=== PATIENT | female | born 1935 | race Caucasian/White ===

== ENCOUNTER 2016-07-04 08:10 | Outpatient (CLI) | payer MEDICARE, OTHER ==
[~2016-07-04] VITALS: Ht 160 cm; Wt 57.6 kg
[2016-07-04] VITALS (8 sets, daily range): BP systolic 150–183; BP diastolic 30–85
[2016-07-04] MEDS ORDERED: ATOR40TA59 PO (08:41)
[2016-07-04] MEDS ORDERED: DIGO125T PO (08:41)
[2016-07-04] MEDS ORDERED: WARF2TAB7 PO (08:41)
[2016-07-04] MEDS ORDERED: SERT25TA PO (08:41)
[2016-07-04] MEDS ORDERED: ALPR0.25 PO (08:41)
[2016-07-04] MEDS ORDERED: HYDR-2666 PO (08:41)
[2016-07-04] MEDS ORDERED: METO25TA4 PO (08:41)
[2016-07-04 08:56] LABS: BASO % 1 % (0-3); EOS % 1 % (0-3); HEMATOCRIT 35.3 % (36.0-47.0); HEMOGLOBIN 11.8 g/dL (12.0-15.5); LYMPH # 1.7 x10^3/uL (1.0-4.8); LYMPH % 20 % (24-48); MEAN CORPUSCULAR HEMOGLOBIN 27 pg (25-35); MEAN CORPUSCULAR HGB CONC 33 g/dL (31-37); MEAN CORPUSCULAR VOLUME 80 fL (79-100); MONO % 7 % (0-9); NEUT % 72 % (31-73); PLATELET COUNT 271 x10^3/uL (140-400); RED CELL DISTRIBUTION WIDTH 15.1 % (11.5-14.5); WHITE BLOOD COUNT 8.7 x10^3/uL (4.0-11.0)
[2016-07-04 09:08] LABS: INR 1.2 (0.8-1.1); PROTHROMBIN TIME PATIENT 14.7 SEC (11.7-14.0)
[2016-07-04] MEDS ORDERED: LIDOCAINE 1% / SOD BICARB 8.4% 20 ML VIAL. IJ ONE ×2 (10:12→11:15)
[2016-07-04] MEDS ORDERED: CONTRAST GIVEN MC PRN (11:00)
[2016-07-04] MEDS ORDERED: MIDAZOLAM HCL/PF 2 MG/2 ML VIAL. ONE (11:03)
[2016-07-04] MEDS ORDERED: fentaNYL PF VIAL 100 MCG/2 ML VIAL ONE (11:04)
[2016-07-04] MEDS ORDERED: MIDAZOLAM HCL/PF 2 MG/2 ML VIAL. IV ONE (11:15)
[2016-07-04] MEDS ORDERED: fentaNYL PF VIAL 100 MCG/2 ML VIAL IV ONE (11:15)
[2016-07-04] MEDS ORDERED: IOHEXOL 300 MG/ML 100ML VIAL. IART ONE (11:45)
--- NOTE | 2016-07-04 11:52 | PDOC1 ---
History and Physical Date of Procedure Date of Admission 07/04/[address] guided aspiration of RLQ cystic mass Indication Indication Large, tender RLQ intraperitoneal cystic mass, of ? etiology. Past Medical History Past Medical History See Nursing Pre Procedure PMH Past Surgical History Past Surgical History See Nursing Pre Procedure PSH Current Medications Current Medications Current Medications Lidocaine/Sodium Bicarbonate (Buffered Lidocaine 1%) 20 ml STK-MED ONCE IJ ; Start 07/04/16 at 10:12; Stop 07/04/16 at 10:13; Status DC Iohexol (Omnipaque 300 Mg/ml) 108 ml 1X ONCE IART ; Start 07/04/16 at 11:45; Stop 07/04/16 at 11:46; Status DC Heparin Sodium/ Sodium Chloride 120 unit 1X ONCE IV ; Start 07/04/16 at 11:00; Stop 07/04/16 at 11:01; Status DC Info (Do NOT chart on this entry -- for MONITORING) 1 each PRN DAILY PRN MC SEE COMMENTS; Start 07/04/16 at 11:00; Stop 07/06/16 at 10:59 Midazolam HCl (Versed) 2 mg STK-MED ONCE .ROUTE ; Start 07/04/16 at 11:03; Stop 07/04/16 at 11:04; Status DC Fentanyl Citrate (Fentanyl 2ml Vial) 100 mcg STK-MED ONCE .ROUTE ; Start at 11:04; Stop 07/04/16 at 11:05; Status DC Lidocaine/Sodium Bicarbonate (Buffered Lidocaine 1%) 20 ml 1X ONCE IJ Last administered on 07/04/16t 11:34; Start 07/04/16 at 11:15; Stop 07/04/16 at 11:16 ; Status DC Midazolam HCl (Versed) 2 mg 1X ONCE IV ; Start 07/04/16 at 11:15; Stop at 11:16; Status DC Fentanyl Citrate (Fentanyl 2ml Vial) 100 mcg 1X ONCE IV ; Start 07/04/16 at 11: 15; Stop 07/04/16 at 11:16; Status DC Active Scripts Active Reported Atorvastatin Calcium 40 Mg Tablet 1 Tab PO DAILY Zoloft (Sertraline Hcl) 25 Mg Tablet 1 Tab PO DAILY Hydrocodone-Apap 5-325 (Hydrocodone Bit/Acetaminophen) 1 Each Tablet 1 Tab PO PRN Q6HRS PRN Warfarin Sodium 2 Mg Tablet 2.5 Mg PO DAILY Xanax (Alprazolam) 0.25 Mg Tablet 1 Tab PO HS Metoprolol Tartrate 25 Mg Tablet 1 Tab PO BID Digoxin 125 Mcg Tablet 1 Tab PO DAILY Allergies Allergies: Coded Allergies: Penicillins (Verified Allergy, Intermediate, 07/04/16) Physical Exam Vital Signs Vital Signs Date Time Temp Pulse Resp B/P (MAP) Pulse Ox O2 Delivery O2 Flow Rate FiO2 07/04/16 11:30 63 13 177/30 (79) 97 Nasal Cannula 2.0 07/04/16 09:17 97.9 97.9 Lungs: Clear to auscultation Heart: Other (Irregularly lrregular R&R) Psych/Mental Status: Mental status NL Other RLQ tender to direct palpation. Diagnostic Data/Imaging Images Outside CT abd/pelvis from [facility], dated 06/23/16 reviewed. Assessment Assessment Tender, large, RLQ, intraperitoneal cystic mass---? etiology Problems: Plan Plan CT guided aspiration of RLQ cystic mass for symptomatic relief and for fluid analysis. KAHLIL SIDHU MD July 04, 2016 11:52
--- NOTE | 2016-07-04 12:00 | PDOC ---
Exam Capacity Planning Manager Capacity Planning Manager Ricky Other Sales Support Worker Other Sales Support Worker B Cates Pre-Procedure Diagnosis Pre-Procedure Diagnosis Large, tender RLQ intraperitoneal cystic mass of ? etiology. Post-Procedure Diagnosis Post-Procedure Diagnosis Same Procedure Performed Procedure Performed CT guided aspiration of RLQ intraperitoneal cystic mass for symptomatic relief and fluid analysis Type of Anesthesia Type of Anesthesia Local only Estimated Blood Loss EBL: Trace Specimens Specimans 230 cc straw-clear cyst fluid removed---samples to lab for C&S and Cytology. Condition of Patient Condition of Patient Stable. No apparent complication. Disposition Disposition Home from OBS, if no problems. F/u with Dr Akhtar. Full report to follow. KAHLIL SIDHU MD July 04, 2016 12:00
--- NOTE | 2016-07-04 16:18 | RAD ---
CT-guided aspiration of right lower quadrant intraperitoneal cystic mass Indication: Large, tender, right lower quadrant intraperitoneal cystic mass, of uncertain etiology. Image guided aspiration has been requested by general surgery, for symptomatic relief and for fluid analysis. Anesthesia: Local only Procedure: Informed consent was obtained from the patient. She was placed supine on the CT scanner. Preliminary noncontrast CT images confirmed the presence of a large, well-defined, right lower quadrant intraperitoneal cystic mass, measuring approximate 9 cm and maximum diameter. A right anterior skin site suitable for image guided aspiration of this lesion was selected and marked. That area was prepped and draped in usual sterile fashion. No moderate sedation was utilized. Using aseptic technique, local anesthesia, and CT guidance, a small micropuncture sheath was successfully introduced into the cystic mass. The micropuncture sheath was exchanged over a guidewire for a 6 [place] drainage catheter. 230 cc of straw-clear cyst fluid was easily aspirated, samples which were submitted to the clinical laboratory for culture and sensitivity and for cytology. Completion CT images revealed essentially complete decompression of the cystic mass. The drainage catheter was then removed and a sterile dressing was applied. Patient tolerated the procedure well without apparent complication. Impression: Successful, uneventful CT-guided aspiration of right lower quadrant intraperitoneal cystic mass, as described. PQRS Compliance Statement: One or more of the following individualized dose reduction techniques was utilized for this procedure: 1. Automated exposure control. 2. Adjustment of MA and/or KV according to patient size. 3. Iterative reconstruction technique.
== END 2016-07-04 13:00 | disposition home or self-care (01) ==
LOC: INTRAD 08:10
PROVIDERS: ATTEND Surgery
DX: K66.8 Other specified disorders of peritoneum (principal); I48.91 Unspecified atrial fibrillation; Z90.49 Acquired absence of other specified parts of digestive tract; Z87.39 Personal history of other diseases of the musculoskeletal system and connective tissue
CPT/HCPCS: 10030; 36415; 82150; 85027; 85610; 87071; 87075; 87205; 88112; 88305; 88341; 88342; A4215; C1729; C1892; C1894; 10022; 77012; G0641

== ENCOUNTER → 2017-02-05 | Outpatient (CLI) | payer MEDICARE ==
[2016-07-04 12:15] VITALS: BP 176/84
[~2017-02-05] MED LIST: ALPR0.25 PO; ATOR40TA59 PO; DIGO125T PO; HYDR-2758 PO; METO25TA4 PO; SERT25TA PO; WARF2TAB7 PO
--- NOTE | 2017-02-05 14:37 | RAD ---
Indication: Right lower quadrant mass follow-up. Abdominal pain. Technique: Grayscale, color Doppler and spectral waveform ultrasound images of the abdomen obtained. Comparison: CT abdomen and pelvis from 06/23/2016. Findings: The visualized pancreas is within normal limits. The liver measures 13.4 cm in craniocaudal dimension and is normal in size and echotexture without focal lesion. Main portal vein is patent with hepatopedal flow. IVC is patent. CBD measures 8 mm which may be normal in postcholecystectomy patient. The right kidney measures 11.5 cm in length without evidence of hydronephrosis. Evaluation of right lower quadrant is limited due to overlying bowel gas. Left kidney measures 11.3 cm in length without evidence of hydronephrosis. Spleen measures 9 cm and is within normal in size. The proximal, mid and distal aortic diameter measures 1.7 cm, 1.6 cm and 1.4 cm respectively without evidence of aneurysmal dilation. Mild atherosclerotic disease of the abdominal aorta. Impression: 1. Evaluation of right lower quadrant is limited due to overlying bowel gas. Consider CT abdomen and pelvis with IV contrast. 2. Status post cholecystectomy.
== END | disposition home or self-care (01) ==
LOC: US 10:23
PROVIDERS: ATTEND Surgery
DX: R19.03 Right lower quadrant abdominal swelling, mass and lump (principal); Z90.49 Acquired absence of other specified parts of digestive tract
CPT/HCPCS: 76700

== ENCOUNTER → 2020-04-21 | Outpatient (CLI) | payer MEDICARE ==
[2016-07-04 12:15] VITALS: BP 176/84
[~2020-04-21] MED LIST changes: -DIGO125T PO; +DIGO125T3 PO; -HYDR-2758 PO; +HYDR-2761 PO; -WARF2TAB7 PO; +WARF2TAB96 PO
--- NOTE | 2020-04-21 15:16 | KCIC ---
Exam Date: 04/21/2020 11:39 AM XR KNEE _3 VIEWS_LT Indication: Reason: OA Lt knee, pain, pain injection today. / Spl. Instructions: / History: FINDINGS/ IMPRESSION: No acute fracture or dislocation. There is moderate lateral compartment joint space narrowing. Align ment is maintained. Moderate osteophytes are noted. There is a small joint effusion. Electronically signed by: Zach Loya MD (04/21/2020 3:14 PM) [id number]
== END ==
LOC: KCIC 11:36
PROVIDERS: ATTEND Family Medicine
DX: M17.12 Unilateral primary osteoarthritis, left knee (principal); M25.762 Osteophyte, left knee; M25.462 Effusion, left knee
CPT/HCPCS: 73562

== ENCOUNTER → 2021-01-03 | Outpatient (CLI) | payer MEDICARE ==
[2016-07-04 12:15] VITALS: BP 176/84
[~2021-01-03] MED LIST changes: +BIOT1CAP3 PO; +CRESTOR5 MG PO
--- NOTE | 2021-01-03 15:28 | EKG ---
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
[2021-01-03 15:46] LABS: BASO % 0 % (0-3); EOS % 1 % (0-3); HEMATOCRIT 37.5 % (36.0-47.0); HEMOGLOBIN 12.6 g/dL (12.0-15.5); LYMPH # 1.3 x10^3/uL (1.0-4.8); LYMPH % 21 % (24-48); MEAN CORPUSCULAR HEMOGLOBIN 30 pg (25-35); MEAN CORPUSCULAR HGB CONC 34 g/dL (31-37); MEAN CORPUSCULAR VOLUME 89 fL (79-100); MONO # 0.5 x10^3/uL (0.0-1.1); MONO % 8 % (0-9); NEUT # 4.6 x10^3/uL (1.8-7.7); NEUT % 71 % (31-73); PLATELET COUNT 222 x10^3/uL (140-400); RED BLOOD COUNT 4.23 x10^6/uL (3.50-5.40); RED CELL DISTRIBUTION WIDTH 15.3 % (11.5-14.5); WHITE BLOOD COUNT 6.4 x10^3/uL (4.0-11.0)
[2021-01-03 16:11] LABS: ALBUMIN 3.7 g/dL (3.4-5.0); ALBUMIN/GLOBULIN RATIO 1.3 (1.0-1.7); CALCIUM 8.7 mg/dL (8.5-10.1); CREATININE 0.7 mg/dL (0.6-1.0); GFR 79.2; POTASSIUM 3.9 mmol/L (3.5-5.1); TOTAL BILIRUBIN 0.4 mg/dL (0.2-1.0); TOTAL PROTEIN 6.6 g/dL (6.4-8.2)
== END ==
LOC: SURGPAT 13:25
PROVIDERS: ATTEND Neurological Surgery
DX: Z01.818 Encounter for other preprocedural examination (principal); M47.26 Other spondylosis with radiculopathy, lumbar region; M48.061 Spinal stenosis, lumbar region without neurogenic claudication; I48.91 Unspecified atrial fibrillation
CPT/HCPCS: 36415; 80053; 85025; 87641; 93005

== ENCOUNTER 2021-01-07 07:11 | Observation (INO) | payer MEDICARE ==
[2021-01-05 14:34] VITALS: BP 135/89
[~2021-01-07] VITALS: Ht 160 cm; Wt 63.6 kg
[~2021-01-07 07:11] MED LIST changes: +BUPIVACAINE-EPI 0.5% 30 ML VIAL KIT. ONE; +GELATIN SPONGE SIZE 100. ONE; +HYDROmorphone 2 MG/ML VIAL IVP PRN; +IV RINGERS,LACTATED 1000ML 1,000 ML IV SCH; +KETOROLAC 60 MG/2 ML VIAL. ONE; +LIDOCAINE 2% PF 5 ML VIAL. ONE; +PHENYLEPHRINE 10 MG/ML VIAL. ONE; +PROCHLORPERAZINE 10 MG/2 ML VIAL. IVP PRN; +PROPOFOL 10 MG/ML (20ML) VIAL. IV ONE; +PROPOFOL 50 ML IV ONE; +REMIFENTANIL 1 MG VIAL. IV ONE; +ROCURONIUM 50 MG/5 ML VIAL. ONE; +SUCCINYLCHOLINE 200 MG/10 ML VIAL. ONE; +THROMBIN TOPICAL 20,000 UNIT SPRAY.SYRN KIT TP ONE; +ceFAZolin SODIUM 1 GM in IV NORMAL SALINE 1000ML BAG 1,000 ML IRR ONE; +fentaNYL PF VIAL 100 MCG/2 ML VIAL IVP PRN; +fentaNYL PF VIAL 100 MCG/2 ML VIAL ONE
[2021-01-07] MEDS ORDERED: DEXAMETHASONE SOD PHOS 4 MG/ML VIAL ONE (07:22)
[2021-01-07] MEDS ORDERED: ONDANSETRON PF 4 MG/2 ML VIAL. ONE (07:22)
[2021-01-07] MEDS ORDERED: SEVOFLURANE > 120 MINUTES. IH ONE (07:53)
[2021-01-07 07:54] VITALS: BP 181/101
[2021-01-07] MEDS ORDERED: PROPOFOL 50 ML IV ONE (08:03)
[2021-01-07] MEDS ORDERED: INSULIN LISPRO 100 UNIT/ML 3ML VIAL for OP,RR ONLY. SQ PRN (08:15)
[2021-01-07 08:29] LABS: PROTHROMBIN TIME PATIENT 14.2 SEC (11.7-14.0)
[2021-01-07] MEDS ORDERED: THROMBIN TOPICAL 20,000 UNIT SPRAY.SYRN KIT TP ONE (09:41)
[2021-01-07] MEDS ORDERED: REMIFENTANIL 1 MG VIAL. IV ONE (09:51)
[2021-01-07] MEDS ORDERED: MAGNESIUM HYDROXIDE 2,400 MG/30 ML ORAL.SUSP. PO PRN (13:00)
[2021-01-07] MEDS ORDERED: diphenhydrAMINE HCL 25 MG CAPSULE PO PRN (13:00)
[2021-01-07] MEDS ORDERED: 0.9 % SODIUM CHLORIDE 10 ML DISP.SYRIN. IV PRN (13:00)
[2021-01-07] MEDS ORDERED: HYDROcodone/APAP 5/325MG 1 TAB TABLET PO PRN (13:00)
[2021-01-07] MEDS ORDERED: ONDANSETRON PF 4 MG/2 ML VIAL. IVP PRN (13:00)
[2021-01-07] MEDS ORDERED: ACETAMINOPHEN 325 MG TABLET. PO PRN (13:00)
[2021-01-07] MEDS ORDERED: fentaNYL PF VIAL 100 MCG/2 ML VIAL IVP PRN (13:00)
[2021-01-07] MEDS ORDERED: NALOXONE 0.4 MG/ML VIAL. IV PRN (13:00)
[2021-01-07] MEDS ORDERED: CALCIUM CARBONATE 500 MG TAB.CHEW PO PRN (13:00)
[2021-01-07] MEDS ORDERED: MAG HYDROX/ALUMINUM HYD/SIMETH 30 ML ORAL.SUSP PO PRN (13:00)
[2021-01-07] MEDS ORDERED: MORPHINE SULFATE 2 MG/ML INJ. ONE (13:11)
[2021-01-07] MEDS: MORPHINE SULFATE 2 MG/ML INJ. IVP PRN ×2 (13:20→13:36)
[2021-01-07] MEDS ORDERED: NEOMY/BACITR/POLYMYXIN OINT PACKET. TP PRN (13:43)
[2021-01-07] MEDS ORDERED: HYDR-2761 PO (13:46)
--- NOTE | 2021-01-07 13:55 | DISCH ---
DISCHARGE INSTRUCTIONS Condition on Discharge Condition on Discharge: Stable Activity After Discharge Activity Instructions for Disc: Activity as tolerated, Avoid exertion Other activity instructions: do not drive for a week Bathing Instructions: Shower-keep dressing dry, No Tub Bath until see Lifting Instructions after Dis: No heavy lifting, No pulling or pushing Driving Instructions after Dis: Do not drive today Weight Bearing Status after Di: As tolerated Diet after Discharge Additional Diet Restrictions: resume home diet Wound Incision Care Wound/Incision Care: Ice to area for comfort Other wound/incision instructi: may remove dressing in 48 hours if dry then may shower, no soaking Contacting the after DC Call your doctor for: Concerns you may have Follow-Up Follow up with: Dr. Griffin's nurse in 2 weeks [phone] PORFIRIO GRIFFIN MD Jan 07, 2021 13:55
[2021-01-07] MEDS: POTASSIUM CL 20MEQ D5-0.45NACL 1,000 ML IV SCH (14:03)
--- NOTE | 2021-01-07 15:17 | OP ---
DATE OF SURGERY: 01/07/2021 PREOPERATIVE DIAGNOSES: Lumbar spinal stenosis at L3-4 with lumbar herniated disk at L3-4 and hypertrophic facet and ligament. POSTOPERATIVE DIAGNOSES: Lumbar spinal stenosis at L3-4 with lumbar herniated disk at L3-4 and hypertrophic facet and ligament. OPERATION PERFORMED: Bilateral hemilaminotomies with removal of thickened ligamentum flavum, microdiskectomy, left L3-L4 with decompression of dura and nerve root. The operation was done with EMG monitoring, SSEP monitoring, fluoroscopy, microscopic dissection. SURGEON: Prosper Jones M.D. SEAM CLOSER: MATTHEW Key, assisted with the surgery. She assisted with the exposure, the microdecompression bilaterally, and diskectomy, as well as the closure. SPECIMEN: Disc and decompression. OPERATIVE INDICATIONS: The patient is a pleasant 85-year-old woman who developed intractable back and bilateral leg pain, which markedly inhibited her activities. On imaging studies, she had a number of problems, but she did have very severe lumbar stenosis at L3-4, which is due to a combination of disc bulging as well as hypertrophic facet and ligament. I spoke with her about the possibility of surgery, which she initially did not wish to proceed with and then later she called us and said she strongly wanted to go ahead. She understood the surgery. She understood the risks. She understood all concerns because of her age. She had consented and strongly wanted to go ahead with surgery. DESCRIPTION OF PROCEDURE: Following general endotracheal anesthesia, the patient was positioned prone on the Ethan table. Lumbar region prepped and draped in the standard fashion. WENDY hose and AV impulse boots were applied for DVT prophylaxis. The microscope was draped, fluoroscopy was draped and brought in the field. Monitoring was established. Ancef 2 grams was given less than one hour prior to initiation of surgery. Using fluoroscopic guidance, an incision was made from mid L3 to mid L4. I dissected down through skin and subcutaneous tissue, reflected the paraspinal muscles on the left side, placed a Munday microdisk retractor, brought in the microscope and the remainder of surgery done with the microscope using microscopic technique. I burred down a generous hemilaminotomy with a high-speed air drill, peeled away thickened ligamentum flavum and inferiorly, this was very thick, markedly compressing the dura, so I thinned the ligamentum flavum and then I was able to pull it back and peel it away. I then gently retracted the root medially. There was a large bulging disk and I had the nerve root held medially with a micro nerve root retractor, incised the annulus and I performed discectomy with pituitary rongeurs and removed very large disc fragments with the [place] dental across the midline and we also teased out rest of the disc fragments. At the completion of this, the area was very well decompressed. I then irrigated copiously. I then switched to the contralateral side by opening the ligamentum flavum on the right side and performed the identical operation on the right. At this level, the disc bulging was not significant and it was really easier to handle the hypertrophic ligament. At any rate on following this, I had an excellent decompression. I did use small amounts of bone wax throughout the operation for any bone bleeding. Bipolar cautery was used sparingly. I irrigated copiously. I removed the retractor, re-irrigated and obtained hemostasis in the muscle and then I closed the wound in layers with absorbable suture and the skin was closed with 4-0 subcuticular stitch. I felt the surgery went very well. GRECIA/SARAH/CHERELLE DR: Mirella TID: [id number] GUIDO
[2021-01-07] MEDS ORDERED: METOPROLOL TART IMMED RELEASE 25 MG TABLET. PO ONE (15:30)
--- NOTE | 2021-01-07 15:30 | NUR ---
BHAVIN Medrano notified of BP 178/94, HR 98. Telephone orders received
[2021-01-07] MEDS: HYDROcodone/APAP 5/325MG 1 TAB TABLET PO PRN (17:25)
[2021-01-07 18:48] VITALS: BP 113/56
[2021-01-07] MEDS ORDERED: ALPRAZolam 0.25 MG TABLET PO SCH (21:00)
[2021-01-07] MEDS ORDERED: ATORVASTATIN CALCIUM 40 MG TABLET. PO PRN (21:00)
[2021-01-07] MEDS: METOPROLOL TART IMMED RELEASE 25 MG TABLET. PO SCH (21:00)
[2021-01-07] MEDS: DOCUSATE SODIUM 100 MG CAPSULE. PO SCH (22:31)
[2021-01-07] MEDS: WARFARIN 2.5 MG TABLET. PO SCH (22:31)
[2021-01-07 22:46] VITALS: BP 165/91
[2021-01-08] MEDS: POTASSIUM CL 20MEQ D5-0.45NACL 1,000 ML IV SCH ×2 (02:20→15:40)
[2021-01-08 02:32] VITALS: BP 132/57
[2021-01-08 07:00] VITALS: BP 111/75
[2021-01-08] MEDS ORDERED: NON FORMULARY ITEM (Biotin 1 MG) PO SCH (09:00)
[2021-01-08] MEDS: SERTRALINE 25 MG TABLET. PO SCH (09:48)
[2021-01-08] MEDS: METOPROLOL TART IMMED RELEASE 25 MG TABLET. PO SCH ×2 (09:49→20:50)
[2021-01-08] MEDS: DOCUSATE SODIUM 100 MG CAPSULE. PO SCH ×2 (09:49→20:45)
[2021-01-08] MEDS: HYDROcodone/APAP 5/325MG 1 TAB TABLET PO PRN ×3 (09:55→20:45)
[2021-01-08 11:00] VITALS: BP 125/61
--- NOTE | 2021-01-08 11:05 | CONS ---
DATE OF CONSULTATION: 01/08/2021 LOCATION: She is in room 410. SUBJECTIVE: This 85-year-old female is well known to me from followup in the office. She had surgery for decompression of spinal stenosis on her lumbar spine yesterday by Dr. Ernandez. She felt like for several hours postop she was great and most of her leg pain was improved and then she is back to her usual and was up most of the night with pain. PAST MEDICAL HISTORY: Remarkable for chronic atrial fibrillation, on anticoagulant therapy. She has a history of hyperlipidemia, prior joint replacement, and anxiety. PAST SURGICAL HISTORY: Remarkable for cholecystectomy, ventral hernia repair, appendectomy, joint replacement of bilateral shoulders and hips. MEDICATIONS: Brought with the patient, listed on the computer, have been addressed. ALLERGIES: SHE IS ALLERGIC TO PENICILLIN. SOCIAL HISTORY: She is a , nonsmoker, nondrinker, does not abuse alcohol. Lives at home alone. FAMILY HISTORY: Noncontributory. REVIEW OF SYSTEMS: As mentioned above. PHYSICAL EXAMINATION: GENERAL: She is a well-developed, well-nourished white female who appears mildly to moderately uncomfortable. VITAL SIGNS: Stable. She is afebrile. HEAD, EYES, EARS, NOSE AND THROAT: Remarkable for glasses. NECK: Supple, without adenopathy or thyromegaly. CHEST: Clear to auscultation and percussion. HEART: Irregularly irregular without S3, S4 or murmur. ABDOMEN: Soft, nontender, without hepatosplenomegaly or mass. EXTREMITIES: Without cyanosis, clubbing, edema. NEUROLOGIC: She is intact. IMPRESSION: 1. Status post decompression for lumbar spinal stenosis. 2. Atrial fibrillation. PLAN: Per Ortho as far as discharge. I hope that her increased pain after initial improvement is just due to some postoperative swelling, but we will defer to Neurosurgery as to their opinion. SHASHANK DR: Kamlesh TID: [id number]
[2021-01-08] MEDS: ALPRAZolam 0.25 MG TABLET PO SCH ×2 (13:34→20:44)
[2021-01-08 15:00] VITALS: BP 135/73
--- NOTE | 2021-01-08 16:21 | PDOC ---
PROGRESS NOTES Date of Service DATE: 01/08/21 TIME: 16:17 Subjective Subjective seen at 1230 POD #1 Bilateral hemilaminotomies with removal of thickened ligamentum flavum, microdiskectomy, left L3-L4 with decompression of dura and nerve root. was feeling well post op and developed increased bilateral anterior thigh pain over night. up in chair Objective Objective Vital Signs Date Time Temp Pulse Resp B/P (MAP) Pulse Ox O2 Delivery O2 Flow Rate FiO2 01/08/21 15:00 98.0 70 17 135/73 (93) 97 Room Air 98.0 01/07/21 20:30 8.0 Intake and Output 01/08/21 07:00 Intake Total 750 ml Output Total 720 ml Balance 30 ml Intake IV Total 750 ml Output Urine Total 700 ml Estimated Blood Loss 20 ml # Voids 5 Physical Exam General: Alert, Oriented X3, Cooperative MUSCULOSKELETAL: Other (EASTMAN) Neuro: Other (Normal strength in LE) Skin: Other (dressing intact, flat) Plan Plan of Care encouraged activity as tolerated PT Single dose of decadron may need HH services at [place] Dr. Hartman following Comment Review of Relevant I have reviewed the following items chanelle (where applicable) has been applied. Labs Laboratory Tests Test 01/07/21 07:59 01/07/21 08:00 01/07/21 12:36 01/07/21 19:32 Glucose (Fingerstick) 129 mg/dL (70-99) 140 mg/dL (70-99) 313 mg/dL (70-99) Prothrombin Time 14.2 SEC (11.7-14.0) Prothromb Time International Ratio 1.1 (0.8-1.1) Activated Partial Thromboplast Time 29 SEC (24-38) Test 01/08/21 07:27 01/08/21 11:38 Glucose (Fingerstick) 141 mg/dL (70-99) 160 mg/dL (70-99) Laboratory Tests Test 01/07/21 19:32 01/08/21 07:27 01/08/21 11:38 Glucose (Fingerstick) 313 mg/dL (70-99) 141 mg/dL (70-99) 160 mg/dL (70-99) Medications Current Medications Cefazolin Sodium 1 gm/Sodium Chloride 1,000 ml @ 1,000 mls/hr 1X ONCE IRR Last administered on 01/07/21at 09:49; Start 01/07/21 at 06:00; Stop 01/07/21 at 06:59; Status DC Fentanyl Citrate (Fentanyl 2ml Vial) 25 mcg PRN Q5MIN PRN IVP MILD PAIN 1-3 Last administered on 01/07/21at 23:38; Start 01/07/21 at 06:00; Stop 01/08/21 at 06:00; Status DC Fentanyl Citrate (Fentanyl 2ml Vial) 50 mcg PRN Q5MIN PRN IVP MODERATE PAIN 4- 6; Start 01/07/21 at 06:00; Stop 01/08/21 at 06:00; Status DC Morphine Sulfate (Morphine Sulfate) 1 mg PRN Q10MIN PRN IVP SEVERE PAIN 7-10 Last administered on 01/07/21at 13:36; Start 01/07/21 at 06:00; Stop 01/08/21 at 06:00; Status DC Ringer's Solution 1,000 ml @ 30 mls/hr Q24H IV Last administered on 01/07/21at 08:05; Start 01/07/21 at 06:00; Stop 01/07/21 at 17:59; Status DC Hydromorphone HCl (Dilaudid) 0.5 mg PRN Q10MIN PRN IVP SEVERE PAIN 7-10, 2nd CHOICE; Start 01/07/21 at 06:00; Stop 01/08/21 at 06:00; Status DC Prochlorperazine Edisylate (Compazine) 5 mg PACU PRN PRN IVP NAUSEA, MRX1; Start 01/07/21 at 06:00; Stop 01/08/21 at 06:00; Status DC Cefazolin Sodium/ Dextrose 50 ml @ 100 mls/hr 1X PREOP PRN IV PRIOR TO PROCEDURE Last administered on 01/07/21at 09:19; Start 01/07/21 at 06:00; Stop 01/07/21 at 18:00; Status DC Gelatin (Gelfoam Size 100) 1 each STK-MED ONCE .ROUTE Last administered on 01/07/21at 09:49; Start 01/07/21 at 06:52; Stop 01/07/21 at 06:52; Status DC Bupivacaine HCl/ Epinephrine Bitart (Sensorcain-Epi 0.5% Kit) 30 ml STK-MED ONCE .ROUTE Last administered on 01/07/21at 09:49; Start 01/07/21 at 06:52; Stop 01/07/21 at 06:52; Status DC Ketorolac Tromethamine (Toradol Im) 60 mg STK-MED ONCE .ROUTE Last administered on 01/07/21at 09:49; Start 01/07/21 at 06:52; Stop 01/07/21 at 06:52; Status DC Thrombin 20,000 unit STK-MED ONCE TP ; Start 01/07/21 at 06:52; Stop 01/07/21 at 06:52; Status DC Propofol (Diprivan) 200 mg STK-MED ONCE IV ; Start 01/07/21 at 05:53; Stop 01/07/21 at 07:53; Status DC Lidocaine HCl (Lidocaine Pf 2% Vial) 5 ml STK-MED ONCE .ROUTE ; Start 01/07/21 at 05:53; Stop 01/07/21 at 07:53; Status DC Phenylephrine HCl (Brandon-Synephrine Inj) 10 mg STK-MED ONCE .ROUTE ; Start 01/07/21 at 05:53; Stop 01/07/21 at 07:53; Status DC Propofol 50 ml @ As Directed STK-MED ONCE IV ; Start 01/07/21 at 05:53; Stop 01/07/21 at 07:53; Status DC Fentanyl Citrate (Fentanyl 2ml Vial) 100 mcg STK-MED ONCE .ROUTE ; Start 01/07/21 at 05:53; Stop 01/07/21 at 07:54; Status DC Succinylcholine Chloride (Anectine) 200 mg STK-MED ONCE .ROUTE ; Start 01/07/21 at 05:53; Stop 01/07/21 at 07:54; Status DC Rocuronium [place] (Zemuron) 50 mg STK-MED ONCE .ROUTE ; Start 01/07/21 at 05:54; Stop 01/07/21 at 07:54; Status DC Remifentanil HCl (Ultiva) 1 mg STK-MED ONCE IV ; Start 01/07/21 at 05:54; Stop 01/07/21 at 07:54; Status DC Insulin Human Lispro (HumaLOG VIAL for OP,RR ONLY) 0-10 units PRN Q1HR PRN SQ PER PROTOCOL; Start 01/07/21 at 08:15; Stop 01/08/21 at 08:14; Status DC Ondansetron HCl (Zofran) 4 mg STK-MED ONCE .ROUTE ; Start 01/07/21 at 07:22; Stop 01/07/21 at 09:23; Status DC Dexamethasone Sodium Phosphate (Decadron) 4 mg STK-MED ONCE .ROUTE ; Start 01/07/21 at 07:22; Stop 01/07/21 at 09:23; Status DC Thrombin 20,000 unit STK-MED ONCE TP Last administered on 01/07/21at 09:49; Start 01/07/21 at 09:41; Stop 01/07/21 at 09:42; Status DC Sevoflurane (Ultane) 90 ml STK-MED ONCE IH ; Start 01/07/21 at 07:53; Stop 01/07/21 at 09:53; Status DC Propofol 50 ml @ As Directed STK-MED ONCE IV ; Start 01/07/21 at 08:03; Stop 01/07/21 at 10:03; Status DC Remifentanil HCl (Ultiva) 1 mg STK-MED ONCE IV ; Start 01/07/21 at 09:51; Stop 01/07/21 at 11:51; Status DC Alprazolam (Xanax) 0.25 mg HS PO Last administered on 01/07/21at 21:09; Start 01/07/21 at 21:00; Stop 01/08/21 at 13:19; Status DC Acetaminophen/ Hydrocodone Bitart (Lortab 5/325) 1 tab PRN Q6HRS PRN PO PAIN Last administered on 01/08/21at 02:39; Start 01/07/21 at 13:00; Stop 01/08/21 at 11:03; Status DC Metoprolol Tartrate (Lopressor) 25 mg BID PO Last administered on 01/08/21at 09:49; Start 01/07/21 at 21:00 Sertraline HCl (Zoloft) 50 mg DAILY PO Last administered on 01/08/21at 09:48; Start 01/08/21 at 09:00 Non-Formulary Medication (Biotin ) 1 mg DAILY PO ; Start 01/08/21 at 09:00; Status UNV Atorvastatin Calcium (Lipitor) 40 mg PRN QHS PRN PO CHOLESTEROL; Start 01/07/21 at 21:00 Fentanyl Citrate (Fentanyl 2ml Vial) 50 mcg PRN Q2HR PRN IVP PAIN Last administered on 01/08/21at 07:48; Start 01/07/21 at 13:00 Acetaminophen (Tylenol) 650 mg PRN Q6HRS PRN PO MILD PAIN / TEMP > 100.3'F; Start 01/07/21 at 13:00 Al Hydroxide/Mg Hydroxide (Mylanta Plus Xs) 30 ml PRN Q3HRS PRN PO HEARTBURN / GAS; Start 01/07/21 at 13:00 Calcium Carbonate/ Glycine (Tums) 500 mg PRN Q3HRS PRN PO INDIGESTION; Start 01/07/21 at 13:00 Diphenhydramine HCl (Benadryl) 25 mg PRN Q6HRS PRN PO ITCHING; Start 01/07/21 at 13:00 Naloxone HCl (Narcan) 0.1 mg PRN Q2MIN PRN IV SEE COMMENTS; Start 01/07/21 at 13:00 Sodium Chloride (Normal Saline Flush) 3 ml QSHIFT PRN IV AFTER MEDS AND BLOOD DRAWS; Start 01/07/21 at 13:00 Potassium Chloride/Dextrose/ Sod Cl 1,000 ml @ 75 mls/hr [id number] IV Last administered on 01/07/21at 14:03; Start 01/07/21 at 13:00 Acetaminophen/ Hydrocodone Bitart (Lortab 5/325) 1 tab PRN Q4HRS PRN PO MILD PAIN 1-3 Last administered on 01/07/21at 17:25; Start 01/07/21 at 13:00 Acetaminophen/ Hydrocodone Bitart (Lortab 5/325) 2 tab PRN Q4HRS PRN PO MODERATE PAIN, SEVERE PAIN Last administered on 01/08/21at 14:12; Start 01/07/21 at 13:00 Docusate Sodium (Colace) 100 mg BID PO Last administered on 01/08/21at 09:49; Start 01/07/21 at 21:00 Magnesium Hydroxide (Milk Of Magnesia) 2,400 mg PRN Q12HR PRN PO CONSTIPATION; Start 01/07/21 at 13:00 Ondansetron HCl (Zofran) 4 mg PRN Q6HRS PRN IVP NAUESA, 1ST CHOICE; Start 01/07/21 at 13:00 Morphine Sulfate (Morphine Sulfate) 2 mg STK-MED ONCE .ROUTE ; Start 01/07/21 at 13:11; Stop 01/07/21 at 13:12; Status DC Neomycin/ Polymyxin/ Bacitracin (Triple Antibiotic Ointment) 1 pkt PRN TID PRN TP SKIN TEARS Last administered on 01/07/21at 15:37; Start 01/07/21 at 13:43 Metoprolol Tartrate (Lopressor) 25 mg 1X ONCE PO Last administered on 01/07/21at 15:38; Start 01/07/21 at 15:30; Stop 01/07/21 at 15:32; Status DC Warfarin Sodium (Coumadin) 2.5 mg DAILY16 PO Last administered on 01/07/21at 22:31; Start 01/07/21 at 22:00 Warfarin Sodium (Coumadin Per Physician) 1 each PRN DAILY PRN MC SEE COMMENTS Last administered on 01/08/21at 11:04; Start 01/07/21 at 22:15 Alprazolam (Xanax) 0.25 mg TID PO Last administered on 01/08/21at 13:34; Start 01/08/21 at 14:00 Active Scripts Active Reported Biotin 1 Mg Capsule 1 Mg PO DAILY Hydrocodone-Apap 5-325 (Hydrocodone Bit/Acetaminophen) 1 Tab Tablet 1 Tab PO PRN Q6HRS PRN Crestor (Rosuvastatin Calcium) 5 Mg Tablet 10 Mg PO HS PRN Zoloft (Sertraline Hcl) 25 Mg Tablet 50 Mg PO DAILY Warfarin Sodium 2 Mg Tablet 2.5 Mg PO DAILY Xanax (Alprazolam) 0.25 Mg Tablet 1 Tab PO HS Metoprolol Tartrate 25 Mg Tablet 1 Tab PO BID Vitals/I & O Vital Sign - Last 24 Hours 01/07/21 01/07/21 01/07/21 01/07/21 17:25 18:48 20:30 22:46 Temp 97.8 97.8 97.8 97.8 Pulse 93 91 Resp 17 18 B/P (MAP) 113/56 (75) 165/91 (115) Pulse Ox 98 96 O2 Delivery Room Air Room Air Room Air Room Air O2 Flow Rate 8.0 01/07/21 01/08/21 01/08/21 01/08/21 23:38 00:11 02:32 02:39 Temp 97.8 97.8 Pulse 92 Resp 16 16 17 16 B/P (MAP) 132/57 (82) Pulse Ox 96 96 96 96 O2 Delivery Room Air Room Air Room Air Room Air 01/08/21 01/08/21 01/08/21 01/08/21 03:56 07:00 09:49 11:00 Temp 98.1 98.7 98.1 98.7 Pulse 96 96 81 Resp 16 17 17 B/P (MAP) 111/75 (87) 111/75 125/61 (82) Pulse Ox 96 95 95 O2 Delivery Room Air Room Air Room Air 01/08/21 15:00 Temp 98.0 98.0 Pulse 70 Resp 17 B/P (MAP) 135/73 (93) Pulse Ox 97 O2 Delivery Room Air Intake and Output 01/07/21 01/07/21 01/08/21 15:00 23:00 07:00 Intake Total 750 ml Output Total 20 ml 700 ml Balance 730 ml -700 ml Justifications for Admission Other Justification PORFIRIO GRIFFIN MD Jan 08, 2021 16:21
[2021-01-08] MEDS ORDERED: DEXAMETHASONE SOD PHOS 4 MG/ML VIAL IVP ONE (16:30)
[2021-01-08] MEDS: WARFARIN 2.5 MG TABLET. PO SCH (16:45)
[2021-01-08 19:00] VITALS: BP 126/68
[2021-01-08 23:00] VITALS: BP 130/70
[2021-01-09 03:00] VITALS: BP 146/85
[2021-01-09 07:00] VITALS: BP 155/87
[2021-01-09] MEDS: POTASSIUM CL 20MEQ D5-0.45NACL 1,000 ML IV SCH (07:41)
[2021-01-09] MEDS: SERTRALINE 25 MG TABLET. PO SCH (09:20)
[2021-01-09] MEDS: DOCUSATE SODIUM 100 MG CAPSULE. PO SCH (09:20)
[2021-01-09] MEDS: METOPROLOL TART IMMED RELEASE 25 MG TABLET. PO SCH (09:21)
[2021-01-09] MEDS: ALPRAZolam 0.25 MG TABLET PO SCH ×2 (09:21→14:29)
[2021-01-09] MEDS: HYDROcodone/APAP 5/325MG 1 TAB TABLET PO PRN ×2 (09:27→14:32)
[2021-01-09 09:45] LABS: PROTHROMBIN TIME PATIENT 15.9 SEC (11.7-14.0)
[2021-01-09 11:00] VITALS: BP 119/53
--- NOTE | 2021-01-09 11:35 | PN ---
DATE: 01/09/2021 DAILY PROGRESS NOTE LOCATION: She is in room 410. SUBJECTIVE: This 85-year-old female well known to me. The patient is status post lumbar decompression for spinal stenosis. She did have increased pain the night before last and yesterday morning when I had seen her. She is much better this morning and had a good night after Neurosurgery gave her some Decadron. OBJECTIVE: VITAL SIGNS: Stable. She is afebrile. GENERAL: She is awake and alert. CHEST: Clear. HEART: Irregularly irregular. ABDOMEN: Benign. NEUROVASCULAR: Lower extremities intact. IMPRESSION: 1. Status post lumbar decompression, doing well at this point. 2. Atrial fibrillation. PLAN: Neurosurgery plans as far as discharge goes, but I think she is probably safe to go today. Question would be whether she would need some steroid taper at home. MARTHA WALKER: Kamlesh TID: [id number]
--- NOTE | 2021-01-09 14:59 | NUR ---
Pt was discharged home at 1440 by w/c. Daughter, Blessing and son-in-law picked pt up. Discharge education was provided, all pt belongings were sent with her.
--- NOTE | 2021-01-12 11:08 | PATHOLOGY ---
[facility] Accession Number: [id number] . 01 Material submitted: . vertebral column - LUMBAR DECOMPRESSION AND DISC. Modifiers: LUMBAR . 01 Clinical history: . LUMBAR STENOSIS SPONDYLOSIS RADICULOPATHY LUMBAR MICRODECOMPRESSION L3-4 . 02 Diagnosis: Bone and soft tissue "L3-4", excision: - Fragments of reactive hyaline cartilage. - Partially decalcified bony trabeculae without significant pathologic alteration. - Foreign material, suggestive of steroid crystals. - Negative for malignancy. ([facility]ATT[facility]ffi; 01/11/2021) [facility] 01/12/2021 1008 Local . 02 Electronically signed: . Radha Nassar MD, Pathologist NPI- [id number] . 01 Gross description: . The specimen is received in formalin, labeled "Deandra Arellano, lumbar decompression and disc". Received are multiple segments of pale anderson to pink-anderson fibrous tissue admixed with fragments of gritty bone measuring 2.5 x 1.5 x 0.2 cm in aggregate dimensions. The specimen is submitted entirely in cassette A1, following light decalcification. ([facility]; 01/10/2021) [facility] 01/10/2021 1115 Local . 02 Pathologist provided ICD-10: M99.73, M54.16, M47.9 . 02 CPT . 165767, 525504 Specimen Comment: A courtesy copy of this report has been sent to [phone], [phone] Specimen Comment: [id number] Specimen Comment: Report sent to / DR OROZCO Performed at: 01 [facility] [address] [place] [address] [address], [place], [place] [id number] MD Conrado Garcia MD Phone: [phone] Performed at: 02 [facility] [address], [place] [id number] MD Haim Jernigan MD Phone: [phone]
== END 2021-01-09 14:40 | disposition home or self-care (01) ==
LOC: SURG 07:11 → 4 NORTH 13:00
PROVIDERS: ADMIT Neurological Surgery; ATTEND Neurological Surgery
DX: M48.062 Spinal stenosis, lumbar region with neurogenic claudication (principal); F41.9 Anxiety disorder, unspecified; M47.26 Other spondylosis with radiculopathy, lumbar region; I48.20 Chronic atrial fibrillation, unspecified; E78.5 Hyperlipidemia, unspecified; M51.26 Other intervertebral disc displacement, lumbar region; Z79.01 Long term (current) use of anticoagulants; Z96.60 Presence of unspecified orthopedic joint implant; Z90.49 Acquired absence of other specified parts of digestive tract; Z79.899 Other long term (current) drug therapy; Z96.612 Presence of left artificial shoulder joint; Z96.611 Presence of right artificial shoulder joint; Z96.643 Presence of artificial hip joint, bilateral; Z98.890 Other specified postprocedural states
CPT/HCPCS: 36415; 63030; 82962; 85610; 85730; 96374; 96375; 96376; 97110; 97116; 97162; A4364; A4556; A4930; A6254; A6258; G0378; G0379; J0330; J0690; J1100; J1885; J2270; J2370; J2704; J3010; J3480; J3490; J7030; 76000; A4222; A4657; J2405